=== PATIENT | male | born 1995 | race Caucasian/White ===

== ENCOUNTER 2019-06-08 23:03 | Emergency (ER) | payer OTHER ==
[~2019-06-08] VITALS: Ht 190.5 cm; Wt 142.6 kg
[~2019-06-08 23:03] MED LIST: ONDA4TAB14 PO
[2019-06-08 23:07] VITALS: Ht 190.5 cm; Wt 142.6 kg
[2019-06-09] MEDS ORDERED: ONDANSETRON 4 MG INJ IV STA (01:13)
[2019-06-09] MEDS ORDERED: SOD CHLORIDE 0.9% 1,000 ML IV STA (01:13)
[2019-06-09 04:21] VITALS: BP 140/76; PULSE 90; RESP 17
== END 2019-06-09 04:21 | disposition home or self-care (01) ==
LOC: FTE 23:03
DX: K52.9 Noninfective gastroenteritis and colitis, unspecified (principal); J45.909 Unspecified asthma, uncomplicated
CPT/HCPCS: 36415; 80048; 85025; 96374; J2405; J7030; Z7502